=== PATIENT | female | born 1990 | race Caucasian/White ===

== ENCOUNTER 2017-01-09 16:58 | Emergency (ER) | payer OTHER ==
[2017-01-09 17:23] VITALS: BP 115/49; PULSE 89; TEMP 97.5; BMI 55.0
--- NOTE | 2017-01-09 17:23 | PDOC ---
Rapid Medical Evaluation Time Seen by Provider: 01/09/17 17:12 Medical Evaluation: Allergies Allergy/AdvReac Type Severity Reaction Status Date / Time latex Allergy Severe Difficulty Verified 04/21/14 21:00 Breathing metalic Allergy Mild Rash Uncoded 04/21/14 21:00 01/09/17 17:20 I have performed a brief in-person evaluation of this patient. The patient presents with a chief complaint of: cough, congestion one day Pertinent physical exam findings: no distress I have ordered the following: urine preg ordered The patient will proceed to the ED for further evaluation. 01/09/17 17:24 Discharge Disposition - Diagnosis Cough - Referrals - Patient Instructions - Post Discharge Activity
--- NOTE | 2017-01-09 18:11 | PDOC ---
History of Present Illness - General Chief Complaint: Respiratory Stated Complaint: COLD SYMPTOMS Time Seen by Provider: 01/09/17 17:12 History Source: Patient Exam Limitations: No Limitations - History of Present Illness Initial Comments: 01/09/17 19:11 26-year-old female with no medical history presents to the emergency department complaining of nonproductive cough 2 days without fever, chills, nausea/ vomiting, dizziness, lightheadedness, headache, facial pains, nasal congestion, rhinorrhea, sore throat, difficulty swallowing, neck pain/stiffness, back pains , chest pain, shortness of breath, abdominal pains, urinary symptoms. Timing/Duration: reports: this morning Past History - Past Medical History Allergies/Adverse Reactions: Allergies Allergy/AdvReac Type Severity Reaction Status Date / Time latex Allergy Severe Difficulty Verified 01/09/17 17:23 Breathing metalic Allergy Mild Rash Uncoded 01/09/17 17:23 Home Medications: Ambulatory Orders NK [No Known Home Medication] 01/09/17 COPD: No Other medical history: denies - Suicide/Smoking/Psychosocial Hx Smoking History: Never smoked Have you smoked in the past 12 months: No Number of Cigarettes Smoked Daily: 3 Hx Alcohol Use: No Substance Use Type: None Review of Systems - Review of Systems Able to Perform ROS?: Yes Comments:: 01/09/17 18:10 CONSTITUTIONAL: Absent: fever, chills, diaphoresis, generalized weakness, malaise, loss of appetite HEENT: Absent: rhinorrhea, nasal congestion, throat pain, throat swelling, difficulty swallowing, mouth swelling, ear pain, eye pain, visual Changes CARDIOVASCULAR: Absent: chest pain, loss of consciousness, palpitations, irregular heart rate, peripheral edema RESPIRATORY: +cough Absent: shortness of breath, dyspnea with exertion, orthopnea, wheezing, stridor, hemoptysis GASTROINTESTINAL: Absent: abdominal pain, abdominal distension, nausea, vomiting, diarrhea, constipation, melena, hematochezia GENITOURINARY: Absent: dysuria, frequency, urgency, hesitancy, hematuria, flank pain, genital pain MUSCULOSKELETAL: Absent: myalgia, arthralgia, joint swelling SKIN: Absent: rash, itching, pallor Is the patient limited Kyrgyz proficient: No *Physical Exam - Vital Signs Last Vital Signs Temp Pulse Resp BP Pulse Ox 97.5 F L 89 18 115/49 99 01/09/17 17:21 01/09/17 17:21 01/09/17 17:21 01/09/17 17:21 01/09/17 17:21 - Physical Exam Comments: 01/09/17 18:11 GENERAL: Well developed, well nourished. Awake and alert. No acute distress. HEENT: Normocephalic, atraumatic. PERRLA, EOMI. No conjunctival pallor. Sclera are non- icteric. Moist mucous membranes. Oropharynx is clear. NECK: Supple. Full ROM. No JVD. Carotid pulses 2+ and symmetric, without bruits. No thyromegaly. No lymphadenopathy. CARDIOVASCULAR: Regular rate and rhythm. No murmurs, rubs, or gallops. Distal pulses are 2+ and symmetric. PULMONARY: No evidence of respiratory distress. Lungs clear to auscultation bilaterally. No wheezing, rales or rhonchi. ABDOMINAL: Soft. Non-tender. Non-distended. No rebound or guarding. No organomegaly. Normoactive bowel sounds. MUSCULOSKELETAL Normal range of motion at all joints. No bony deformities or tenderness. No CVA tenderness. EXTREMITIES: No cyanosis. No clubbing. No edema. No calf tenderness. SKIN: Warm and dry. Normal capillary refill. No rashes. No jaundice. ED Treatment Course - ADDITIONAL ORDERS Additional order review: Laboratory Results 01/09/17 17:30 Urine HCG, Qual Negative - RADIOLOGY Radiology Studies Ordered: Category Date Time Status CHEST PA & LAT [RAD] Stat Radiology 01/09/17 18:08 Ordered Radiograph Interpretation: 01/09/17 18:11 CXR 2v NAD *DC/Admit/Observation/Transfer Diagnosis at time of Disposition: Cough - Discharge Dispostion Disposition: HOME Condition at time of disposition: Stable Admit: No - Referrals Referrals: Junior Arreaga MD [Staff Physician] - - Patient Instructions Printed Discharge Instructions: DI for Viral Syndrome Additional Instructions: [id number] supportive care Increase fluids Follow with your physician or the physician noted on your discharge Robitussin Return back to the emergency department for severe/persistent or worsening symptoms. - Post Discharge Activity
== END 2017-01-09 19:21 | disposition home or self-care (01) ==
LOC: JERFT 16:58
PROC: 3E0F7GC Introduction of Other Therapeutic Substance into Respiratory Tract, Via Natural or Artificial Opening (ICD-10-PCS; principal; 2017-01-09)
DX: J06.9 Acute upper respiratory infection, unspecified (principal); B97.89 Other viral agents as the cause of diseases classified elsewhere
CPT/HCPCS: 71020-TC; 84703; 94640; 99281-25

== ENCOUNTER 2018-05-21 15:55 | Emergency (ER) | payer OTHER ==
[2018-05-21 15:58] VITALS: BP 151/94; PULSE 99; TEMP 98.1; BMI 25.0
[2018-05-21] MEDS ORDERED: ONDANSETRON *ODT* 4 MG TABLET SL ONE (16:01)
[2018-05-21] MEDS ORDERED: ACETAMINOPHEN 500 MG TABLET (FP) PO ONE (16:05)
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
[2018-05-21] MEDS ORDERED: ACETAMINOPHEN 500 MG TABLET (FP) ONE (16:08)
[2018-05-21] MEDS ORDERED: ONDANSETRON *ODT* 4 MG TABLET ONE (16:09)
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
== END 2018-05-21 17:01 | disposition home or self-care (01) ==
LOC: FER 15:55
DX: R11.10 Vomiting, unspecified (principal); V43.62XA Car passenger injured in collision with other type car in traffic accident, initial encounter; Y93.89 Activity, other specified; Y92.410 Unspecified street and highway as the place of occurrence of the external cause
CPT/HCPCS: 99282-25; Q0162